=== PATIENT | male | born 1955 | race Caucasian/White ===

== ENCOUNTER 2019-11-30 16:50 | Emergency (ER) | payer OTHER ==
[2019-11-30] MEDS ORDERED: OXYC1TAB23 PO (17:01)
[2019-11-30] MEDS ORDERED: LISI-542 PO (17:01)
[2019-11-30 17:50] LABS: BASO % 0.4 % (0.0-1.0); EOS # 0.1 10^3/uL (0.0-0.5); EOS % 1.9 % (0.0-3.0); HEMATOCRIT 41.1 % (42.0-52.0); HEMOGLOBIN 14.8 g/dl (13.5-17.5); LYMPH # 1.4 10^3/uL (1.5-5.0); LYMPH % 19.8 % (24.0-44.0); MEAN CORPUSCULAR HEMOGLOBIN 33.6 pg (27.0-33.0); MEAN CORPUSCULAR VOLUME 93.2 fl (80.0-96.0); MONO # 0.8 10^3/uL (0.0-0.8); MONO % 11.2 % (0.0-5.0); NEUTROPHILS # 4.8 10^3/uL (1.5-8.5); NEUTROPHILS % 66.4 % (36.0-66.0); PLATELET COUNT, AUTOMATED 177 10^3/uL (150-450); RED BLOOD COUNT 4.41 10^6/uL (4.30-6.10); WHITE BLOOD COUNT 7.3 10^3/uL (4.0-10.0)
[2019-11-30 18:10] LABS: ERYTHROCYTE SEDIMENTATION RATE 19 mm/hr (0-20)
[2019-11-30 18:13] LABS: ALBUMIN 3.7 GM/DL (3.2-5.2); ALT/SGPT 29 U/L (12-78); BILIRUBIN,DIRECT 0.2 MG/DL (0.0-0.2); BILIRUBIN,TOTAL 0.4 MG/DL (0.2-1.0); BLOOD UREA NITROGEN 4 MG/DL (7-18); C REACTIVE PROTEIN QUANTITATIV 2.15 MG/DL (0.00-0.30); CALCIUM LEVEL 8.5 MG/DL (8.8-10.2); CARBON DIOXIDE LEVEL 23 MEQ/L (21-32); CHLORIDE LEVEL 100 MEQ/L (98-107); CREATININE FOR GFR 0.63 MG/DL (0.70-1.30); GLOMERULAR FILTRATION RATE > 60.0 (>49); GLUCOSE, FASTING 90 MG/DL (70-100); POTASSIUM SERUM 3.7 MEQ/L (3.5-5.1); SODIUM LEVEL 132 MEQ/L (136-145)
--- NOTE | 2019-11-30 18:21 | REPVR ---
PROCEDURE INFORMATION: Exam: US Duplex Left Lower Extremity Veins, Limited Exam date and time: 11/30/2019 6:09 PM Age: 63 years old Clinical indication: Pain; Leg, lower; Left; Additional info: Left lower leg swelling/redness; R/O dvt TECHNIQUE: Imaging protocol: Real-time Duplex ultrasound of the Left Lower Extremity with 2-D wolf scale, color Doppler flow and spectral waveform analysis with image documentation. Limited exam focused on the left lower extremity veins. COMPARISON: No relevant prior studies available. FINDINGS: Left deep veins: Occlusive thrombus in the deep venous system extending from the femoral vein to the tibioperoneal trunk. Left superficial veins: Unremarkable. Saphenofemoral junction is patent without thrombus. Soft tissues: Lower leg edema. IMPRESSION: 1. Occlusive thrombus in the deep venous system extending from the femoral vein to the tibioperoneal trunk. 2. Lower leg edema. Electronically signed by: Napoleon Neri On 11/30/2019 18:20:56 PM
[2019-11-30 18:47] LABS: NT-PRO BNP 188 PG/ML (<125)
[2019-11-30 18:54] LABS: INR 1.04; PARTIAL THROMBOPLASTIN TIME 25.8 SECONDS (25.0-38.4); PROTHROMBIN TIME 13.3 SECONDS (11.8-14.0)
[2019-11-30 19:32] VITALS: BP 151/76
[2019-11-30] MEDS ORDERED: APIXABAN 5 MG TAB (ELIQUIS) PO ONE (19:45)
[2019-11-30] MEDS ORDERED: ELIQ5TAB PO (19:52)
[2019-12-03 11:19] LABS: DRVV SCREEN 28.1 SEC
[2019-12-03 11:20] LABS: PTT LUPUS TYPE ANTICOAG SCREEN 0.7 (0-1.2)
[2019-12-08 18:14] LABS: ANTI THROMBIN 3 ANTIGEN IMMUNO 73 % (72-124); ANTI THROMBIN 3 FUNCT ACTIVITY 82 % (75-135); CARDIOLIPIN IGA ANTIBODY <9 APL U/mL (0-11); CARDIOLIPIN IGG ANTIBODY <9 GPL U/mL (0-14); CARDIOLIPIN IGM ANTIBODY <9 MPL U/mL (0-12); PHOSPHOLIPIDS LEVEL 154 mg/dL (150-250); PROTEIN C FUNCTIONAL ACTIVITY 88 % (73-180); PROTEIN S FUNCTIONAL ACTIVITY 80 % (63-140)
== END 2019-11-30 20:31 | disposition home or self-care (01) ==
LOC: M ED 16:50
DX: I82.412 Acute embolism and thrombosis of left femoral vein (principal); I10 Essential (primary) hypertension; M54.9 Dorsalgia, unspecified; F17.210 Nicotine dependence, cigarettes, uncomplicated; Z79.899 Other long term (current) drug therapy; Z79.01 Long term (current) use of anticoagulants

== ENCOUNTER → 2020-01-15 | Outpatient (CLI) | payer OTHER ==
[~2020-01-15] MED LIST: ELIQ5TAB PO; LISI-542 PO; OXYC1TAB23 PO
--- NOTE | 2020-02-03 17:37 | REP ---
BILATERAL LOWER EXTREMITY ARTERIAL DOPPLER ULTRASOUND HISTORY: Atherosclerosis. FINDINGS: Ankle brachial indices could not be accomplished due to patient intolerance and pain. Essentially normal biphasic waveforms are seen throughout the lower extremities. Mild plaquing is seen. The right popliteal vein is incidentally noted to be thrombosed. This is a known DVT. No arterial stenosis or occlusion is appreciated. 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
== END ==
LOC: M RAD 13:58
PROVIDERS: ATTEND Physician Assistant
DX: I70.203 Unspecified atherosclerosis of native arteries of extremities, bilateral legs (principal); I82.431 Acute embolism and thrombosis of right popliteal vein

== ENCOUNTER → 2022-01-31 | Outpatient (REF) | payer MEDICARE, OTHER ==
[~2022-01-31] MED LIST changes: -LISI-542 PO; +LISI5TAB11 PO
[2022-01-31 18:11] LABS: HEMOGLOBIN 14.9 g/dl (13.5-17.5); MEAN CORPUSCULAR HEMOGLOBIN 32.3 pg (27.0-33.0); MEAN CORPUSCULAR HGB CONC 33.9 g/dl (32.0-36.5); MEAN CORPUSCULAR VOLUME 95.4 fl (80.0-96.0); PLATELET COUNT, AUTOMATED 224 10^3/uL (150-450); RED BLOOD COUNT 4.61 10^6/uL (4.30-6.10); WHITE BLOOD COUNT 8.1 10^3/uL (4.0-10.0)
[2022-01-31 18:58] LABS: ALBUMIN 3.9 GM/DL (3.2-5.2); ALT/SGPT 32 U/L (12-78); BILIRUBIN,TOTAL 0.4 MG/DL (0.2-1.0); BLOOD UREA NITROGEN 8 MG/DL (7-18); CALCIUM LEVEL 9.2 MG/DL (8.8-10.2); CARBON DIOXIDE LEVEL 27 MEQ/L (21-32); CHLORIDE LEVEL 104 MEQ/L (98-107); CHOLESTEROL LEVEL 107 MG/DL (<200); CHOLESTEROL RISK RATIO 1.981 (<5); CREATININE FOR GFR 0.73 MG/DL (0.70-1.30); GLOMERULAR FILTRATION RATE > 60.0 (>49); GLUCOSE, FASTING 86 MG/DL (70-100); HDL CHOLESTEROL 54 MG/DL (>40); LDL CHOLESTEROL 40 MG/DL (<100); NON-HDL-C 53 MG/DL; POTASSIUM SERUM 4.5 MEQ/L (3.5-5.1); PROSTATIC SPECIFIC AG MONITOR 0.92 NG/ML (< 4.00); SODIUM LEVEL 135 MEQ/L (136-145); TOTAL PROTEIN 7.4 GM/DL (6.4-8.2); TRIGLYCERIDES LEVEL 64 MG/DL (<150)
[2022-01-31 19:35] LABS: HEMOGLOBIN A1c 5.2 %
== END ==
LOC: M LABDRAWC 17:28
PROVIDERS: ATTEND Family Medicine
DX: E78.5 Hyperlipidemia, unspecified (principal)
CPT/HCPCS: 36415; 80053; 80061; 82306; 83036; 84153; 85027; G0480

== ENCOUNTER 2022-07-29 20:43 | Emergency (ER) | payer MEDICARE, OTHER ==
[~2022-07-29] VITALS: Ht 177.8 cm; Wt 72.7 kg
[2022-07-29 21:24] LABS: BASO % 0.5 % (0.0-1.0); HEMATOCRIT 41.8 % (42.0-52.0); HEMOGLOBIN 14.6 g/dl (13.5-17.5); LYMPH # 1.2 10^3/uL (1.5-5.0); LYMPH % 29.5 % (24.0-44.0); MEAN CORPUSCULAR HEMOGLOBIN 31.9 pg (27.0-33.0); MEAN CORPUSCULAR HGB CONC 34.9 g/dl (32.0-36.5); MEAN CORPUSCULAR VOLUME 91.5 fl (80.0-96.0); MONO # 0.5 10^3/uL (0.0-0.8); MONO % 11.1 % (2.0-8.0); NEUTROPHILS # 2.4 10^3/uL (1.5-8.5); NEUTROPHILS % 57.7 % (36.0-66.0); PLATELET COUNT, AUTOMATED 148 10^3/uL (150-450); RED BLOOD COUNT 4.57 10^6/uL (4.30-6.10); WHITE BLOOD COUNT 4.1 10^3/uL (4.0-10.0)
[2022-07-29 21:48] LABS: LIPASE 35 U/L (12-53)
[2022-07-29 21:50] LABS: CPK CREATINE PHOSPHOKINASE 181 U/L (46-171)
[2022-07-29 21:54] LABS: ALBUMIN 3.6 G/DL (3.2-5.2); ALKALINE PHOSPHATASE 102 U/L (46-116); ALT/SGPT 69 U/L (7.0-40); AST/SGOT 80 U/L (<34); BILIRUBIN,DIRECT 0.3 MG/DL (<0.4); BILIRUBIN,TOTAL 0.7 MG/DL (0.3-1.2); BLOOD UREA NITROGEN 10 MG/DL (9-23); CALCIUM LEVEL 8.9 MG/DL (8.3-10.6); CARBON DIOXIDE LEVEL 22 MMOL/L (20-31); CHLORIDE LEVEL 102 MMOL/L (98-107); CK-MB VALUE MASS 5.4 NG/ML (<3.6); CREATININE FOR GFR 0.62 MG/DL (0.70-1.30); GLOMERULAR FILTRATION RATE > 60.0 (>49); GLUCOSE, FASTING 96 MG/DL (74-106); MB/CK RELATIVE INDEX 2.98 (< OR =4); POTASSIUM SERUM 3.8 MMOL/L (3.5-5.1); SODIUM LEVEL 135 MMOL/L (136-145); TOTAL PROTEIN 6.9 G/DL (5.7-8.2)
[2022-07-29] MEDS ORDERED: ISOVUE-370 76% 100ML VIAL As Ordered ONE (22:12)
[2022-07-29 22:49] LABS: MB/CK RELATIVE INDEX 2.5 (< OR =4)
[2022-07-30] MEDS ORDERED: NS 1,000 ML IV ONE (01:00)
[2022-07-30] MEDS: MORPHINE 4 MG/ML 1ML VIAL IV PRN ×3 (01:04→04:41)
[2022-07-30] MEDS ORDERED: OXYCODONE/APAP 5MG/325MG(HOME DOSE PACK) PO ONE (05:25)
[2022-07-30] MEDS ORDERED: MORPHINE 4 MG/ML 1ML VIAL IV ONE (05:25)
[2022-07-30] MEDS ORDERED: OXYC1TAB23 PO ×2 (05:26→09:14)
[2022-07-30 05:31] VITALS: BP 148/78
== END 2022-07-30 05:39 | disposition home or self-care (01) ==
LOC: EDBD 20:43 → M ED 20:43
DX: R10.9 Unspecified abdominal pain (principal); I73.9 Peripheral vascular disease, unspecified; E27.9 Disorder of adrenal gland, unspecified; I10 Essential (primary) hypertension; Z86.718 Personal history of other venous thrombosis and embolism; E78.5 Hyperlipidemia, unspecified; I25.10 Atherosclerotic heart disease of native coronary artery without angina pectoris; I70.213 Atherosclerosis of native arteries of extremities with intermittent claudication, bilateral legs; Z79.01 Long term (current) use of anticoagulants
CPT/HCPCS: 51701; 75635; 80048; 80076; 81001; 82550; 82553; 83690; 83880; 84484; 85025; 93005; 93041; 96374; 96376; 99285; J2270; Q9967

== ENCOUNTER → 2022-07-31 | Outpatient (REF) | payer MEDICARE, OTHER | LOC: M SFHCCLAY 11:26 | PROVIDERS: ATTEND Nurse Practitioner Family | DX: R19.7 Diarrhea, unspecified (principal) ==

== ENCOUNTER → 2022-09-20 | Outpatient (REF) | payer MEDICARE, OTHER | LOC: M SFHCCLAY 11:23 | PROVIDERS: ATTEND Nurse Practitioner Family | DX: R19.7 Diarrhea, unspecified (principal) ==

== ENCOUNTER → 2022-10-13 | Outpatient (REF) | payer MEDICARE | LOC: M LABDRAWC 17:41 | PROVIDERS: ATTEND Urology | DX: Z12.5 Encounter for screening for malignant neoplasm of prostate (principal) ==

== ENCOUNTER → 2022-10-13 | Outpatient (REF) | payer MEDICARE ==
[2022-10-13 18:17] LABS: HEMATOCRIT 41.1 % (42.0-52.0); HEMOGLOBIN 14.1 g/dl (13.5-17.5); MEAN CORPUSCULAR HEMOGLOBIN 32.8 pg (27.0-33.0); MEAN CORPUSCULAR HGB CONC 34.3 g/dl (32.0-36.5); MEAN CORPUSCULAR VOLUME 95.6 fl (80.0-96.0); PLATELET COUNT, AUTOMATED 192 10^3/uL (150-450); WHITE BLOOD COUNT 6.8 10^3/uL (4.0-10.0)
[2022-10-13 18:35] LABS: ALBUMIN 3.4 G/DL (3.2-5.2); ALKALINE PHOSPHATASE 76 U/L (46-116); ALT/SGPT 40 U/L (7.0-40); AST/SGOT 25 U/L (<34); BILIRUBIN,DIRECT 0.1 MG/DL (<0.4); BILIRUBIN,TOTAL 0.3 MG/DL (0.3-1.2); IRON (FE) 88 UG/DL (65-175); PERCENT SATURATION 30.4 % (19.7-50.0); TOTAL IRON BINDING CAPACITY 289 UG/DL (250-425); TOTAL PROTEIN 6.2 G/DL (5.7-8.2)
[2022-10-13 18:49] LABS: HEPATITIS B SURFACE ANTIGEN NEGATIVE (NEGATIVE)
[2022-10-13 19:11] LABS: HEPATITIS B CORE ANTIBODY IGM NEGATIVE (NEGATIVE)
[2022-10-18 16:08] LABS: ANCA-ATYPICAL <1:20 titer (Neg:<1:20); ANTI-MITOCHONDRIAL ANTIBODY <20.0 Units (0.0-20.0); ANTINUCLEAR ANTIBODIES DIRECT Negative (Negative); CYTOPLASMIC NEUTROP AB ANCA-C <1:20 titer (Neg:<1:20); LIVER-KIDNEY MICROSOMAL ABY <20.1 Units (0.0-20.0); PERINUCLEAR AB ANCA-P <1:20 titer (Neg:<1:20)
== END ==
LOC: M LABDRAWC 17:11
PROVIDERS: ATTEND Physician Assistant Medical
DX: R74.01 Elevation of levels of liver transaminase levels (principal); Z12.5 Encounter for screening for malignant neoplasm of prostate; Z79.899 Other long term (current) drug therapy

== ENCOUNTER 2022-11-03 11:28 | Day surgery (SDC) | payer MEDICARE ==
[~2022-11-03] VITALS: Ht 177.8 cm; Wt 83.6 kg
[~2022-11-03 11:28] MED LIST changes: +FLOM0.4C39 PO; +GABA-1171 PO
[2022-11-03] MEDS ORDERED: propofoL 200 MG/20 ML VIAL As Ordered ONE ×2 (11:39→14:14)
[2022-11-03] MEDS ORDERED: LIDOCAINE 2% 100MG/5ML SDV (FOR ANES.) As Ordered ONE (11:39)
[2022-11-03] MEDS ORDERED: fentaNYL 100 MCG/2 ML INJECTION As Ordered ONE (11:40)
[2022-11-03 12:08] VITALS: TEMP 97
[2022-11-03] MEDS ORDERED: ePHEDrine SULFATE 25 MG/5 ML(5MG/ML) SYRINGE As Ordered ONE ×2 (12:26→14:01)
[2022-11-03] MEDS ORDERED: GLYCOPYRROLATE INJ 0.2 MG/ML 2 ML VIAL As Ordered ONE (14:11)
[2022-11-03 15:10] VITALS: BP 133/64; O2SAT 96
[2022-11-04] MEDS ORDERED: OXYC7.5T3 PO (09:53)
[2022-11-04] MEDS ORDERED: FINA5TAB2 PO (10:06)
[2022-11-04] MEDS ORDERED: ERGO500029 PO (10:06)
[2022-11-04] MEDS ORDERED: METO1TAB7 PO (10:06)
[2022-11-04] MEDS ORDERED: ROSU40TA4 PO (10:06)
[2022-11-04] MEDS ORDERED: ELIQ5TAB PO (10:06)
[2022-11-04] MEDS ORDERED: FLOM0.4C39 PO (10:06)
[2022-11-04] MEDS ORDERED: LISI30TA4 PO (10:06)
== END 2022-11-03 15:15 | disposition home or self-care (01) ==
LOC: M OPP 11:28
PROVIDERS: ATTEND Internal Medicine Gastroenterology
DX: D12.0 Benign neoplasm of cecum (principal); D12.2 Benign neoplasm of ascending colon; D12.5 Benign neoplasm of sigmoid colon; K64.8 Other hemorrhoids; B96.81 Helicobacter pylori [H. pylori] as the cause of diseases classified elsewhere; K29.80 Duodenitis without bleeding; K29.70 Gastritis, unspecified, without bleeding; Z79.01 Long term (current) use of anticoagulants; Z79.811 Long term (current) use of aromatase inhibitors; Z79.891 Long term (current) use of opiate analgesic; Z79.899 Other long term (current) drug therapy

== ENCOUNTER 2022-11-04 05:50 | Inpatient (IN) | payer MEDICARE ==
[~2022-11-04] VITALS: Ht 177.8 cm; Wt 85.3 kg
[2022-11-04] MEDS ORDERED: NS 1,000 ML IV SCH (06:25)
[2022-11-04 06:50] LABS: BASO % 0.3 % (0.0-1.0); EOS % 0.2 % (0.0-3.0); HEMATOCRIT 40.8 % (42.0-52.0); HEMOGLOBIN 13.9 g/dl (13.5-17.5); LYMPH # 1.1 10^3/uL (1.5-5.0); LYMPH % 8.8 % (24.0-44.0); MEAN CORPUSCULAR HEMOGLOBIN 32.8 pg (27.0-33.0); MEAN CORPUSCULAR HGB CONC 34.1 g/dl (32.0-36.5); MEAN CORPUSCULAR VOLUME 96.2 fl (80.0-96.0); MONO # 0.9 10^3/uL (0.0-0.8); MONO % 7.2 % (2.0-8.0); NEUTROPHILS % 83.2 % (36.0-66.0); PLATELET COUNT, AUTOMATED 186 10^3/uL (150-450); RED BLOOD COUNT 4.24 10^6/uL (4.30-6.10)
[2022-11-04 07:08] LABS: BLOOD UREA NITROGEN 6 MG/DL (9-23); CALCIUM LEVEL 9.2 MG/DL (8.3-10.6); CARBON DIOXIDE LEVEL 23 MMOL/L (20-31); CHLORIDE LEVEL 105 MMOL/L (98-107); CREATININE FOR GFR 0.59 MG/DL (0.70-1.30); GLOMERULAR FILTRATION RATE > 60.0 (>49); GLUCOSE, FASTING 116 MG/DL (74-106); SODIUM LEVEL 136 MMOL/L (136-145)
[2022-11-04] MEDS ORDERED: ONDANSETRON 4MG 2ML VIAL IV ONE (07:20)
[2022-11-04] MEDS: MORPHINE 2 MG/ML 1ML VIAL IV PRN ×2 (07:26→08:14)
[2022-11-04] MEDS ORDERED: methylPREDNISolone 125MG 2ML VIAL IV ONE (07:50)
[2022-11-04] MEDS ORDERED: IPRATROPIUM 0.5MG/ALBUTEROL 2.5MG INH SOL UD 3ML (DUONEB) NEB ONE (07:50)
[2022-11-04] MEDS ORDERED: ALBUTEROL SULFATE 2.5MG/0.5ML INH NEB SOLN INH ONE (07:50)
[2022-11-04] MEDS: GASTROGRAFIN SOLUTION 30ML PO SCH ×2 (07:56→08:14)
[2022-11-04] MEDS ORDERED: ISOVUE-370 76% 100ML VIAL As Ordered ONE (08:47)
[2022-11-04] MEDS ORDERED: PIPERACILLIN/TAZOBACTAM SOD 4.5 GM in D5W MINI-BAG PLUS 50 ML IV ONE (09:10)
[2022-11-04 09:27] LABS: LIPASE 27 U/L (12-53)
[2022-11-04 09:29] LABS: ALBUMIN 3.6 G/DL (3.2-5.2); ALKALINE PHOSPHATASE 86 U/L (46-116); ALT/SGPT 24 U/L (7.0-40); AST/SGOT 14 U/L (<34); BILIRUBIN,DIRECT 0.3 MG/DL (<0.4); BILIRUBIN,TOTAL 0.7 MG/DL (0.3-1.2); TOTAL PROTEIN 6.4 G/DL (5.7-8.2)
[2022-11-04] MEDS ORDERED: OXYC7.5T3 PO (09:53)
[2022-11-04] MEDS ORDERED: ELIQ5TAB PO (10:06)
[2022-11-04] MEDS ORDERED: METO1TAB7 PO (10:06)
[2022-11-04] MEDS ORDERED: FINA5TAB2 PO (10:06)
[2022-11-04] MEDS ORDERED: ROSU40TA4 PO (10:06)
[2022-11-04] MEDS ORDERED: FLOM0.4C39 PO (10:06)
[2022-11-04] MEDS ORDERED: ERGO500029 PO (10:06)
[2022-11-04] MEDS ORDERED: LISI30TA4 PO (10:06)
[2022-11-04] MEDS ORDERED: HOME MED LIST COMPLETE! XX SCH (10:10)
[2022-11-04] MEDS ORDERED: ONDANSETRON 4MG 2ML VIAL IV PRN (10:45)
[2022-11-04] MEDS ORDERED: METOPROLOL TART 25 MG TABLET PO ONE (11:00)
[2022-11-04 13:00] VITALS: BP 126/77; TEMP 97.7; O2SAT 92
[2022-11-04] MEDS ORDERED: MORPHINE 2 MG/ML 1ML VIAL IV PRN (13:25)
[2022-11-04] MEDS ORDERED: ALBUTEROL SULFATE 2.5MG/0.5ML INH NEB SOLN NEB PRN (13:25)
[2022-11-04] MEDS: LR 1,000 ML IV SCH ×2 (13:37→23:20)
[2022-11-04] MEDS: PANTOPRAZOLE 40MG VIAL IV SCH (15:35)
[2022-11-04] MEDS ORDERED: KETOROLAC 30 MG/ML 1ML VIAL IV ONE (15:55)
[2022-11-04] MEDS: PIPERACILLIN/TAZOBACTAM SOD 3.375 GM in D5W MINI-BAG PLUS 50 ML IV SCH ×2 (16:53→23:19)
[2022-11-04] MEDS: MORPHINE 4 MG/ML 1ML VIAL IV PRN ×2 (18:05→22:55)
[2022-11-04] MEDS: METOPROLOL TART 25 MG TABLET PO SCH (21:34)
[2022-11-04] MEDS ORDERED: KETOROLAC 30 MG/ML 1ML VIAL IV PRN (22:00)
[2022-11-05] MEDS: MORPHINE 4 MG/ML 1ML VIAL IV PRN ×5 (03:50→20:33)
[2022-11-05] MEDS: PIPERACILLIN/TAZOBACTAM SOD 3.375 GM in D5W MINI-BAG PLUS 50 ML IV SCH ×4 (05:10→23:11)
[2022-11-05 06:00] VITALS: BP 114/60; TEMP 97.5; O2SAT 94
[2022-11-05 06:19] LABS: BASO % 0.2 % (0.0-1.0); HEMATOCRIT 34.2 % (42.0-52.0); HEMOGLOBIN 11.8 g/dl (13.5-17.5); LYMPH # 0.9 10^3/uL (1.5-5.0); LYMPH % 8.1 % (24.0-44.0); MEAN CORPUSCULAR HEMOGLOBIN 33.4 pg (27.0-33.0); MEAN CORPUSCULAR HGB CONC 34.5 g/dl (32.0-36.5); MEAN CORPUSCULAR VOLUME 96.9 fl (80.0-96.0); MONO # 0.8 10^3/uL (0.0-0.8); MONO % 7.7 % (2.0-8.0); NEUTROPHILS % 83.5 % (36.0-66.0); PLATELET COUNT, AUTOMATED 162 10^3/uL (150-450); RED BLOOD COUNT 3.53 10^6/uL (4.30-6.10); WHITE BLOOD COUNT 10.8 10^3/uL (4.0-10.0)
[2022-11-05 06:35] LABS: ALKALINE PHOSPHATASE 64 U/L (46-116); ALT/SGPT 19 U/L (7.0-40); AST/SGOT < 8 U/L (<34); BILIRUBIN,TOTAL 0.5 MG/DL (0.3-1.2); BLOOD UREA NITROGEN 8 MG/DL (9-23); CALCIUM LEVEL 8.8 MG/DL (8.3-10.6); CARBON DIOXIDE LEVEL 26 MMOL/L (20-31); CHLORIDE LEVEL 106 MMOL/L (98-107); GLOMERULAR FILTRATION RATE > 60.0 (>49); GLUCOSE, FASTING 117 MG/DL (74-106); SODIUM LEVEL 139 MMOL/L (136-145); TOTAL PROTEIN 5.6 G/DL (5.7-8.2)
[2022-11-05] MEDS: LR 1,000 ML IV SCH ×3 (06:45→20:34)
[2022-11-05] MEDS: METOPROLOL TART 25 MG TABLET PO SCH ×2 (08:07→20:34)
[2022-11-05 14:00] VITALS: BP 124/67; TEMP 97.7; O2SAT 94
[2022-11-05] MEDS: PANTOPRAZOLE 40MG VIAL IV SCH (14:30)
[2022-11-05 20:00] VITALS: BP 135/64; TEMP 97.9; O2SAT 95
[2022-11-06] MEDS: MORPHINE 4 MG/ML 1ML VIAL IV PRN ×2 (00:34→05:16)
[2022-11-06 04:55] VITALS: BP 152/87; TEMP 97.7; O2SAT 94
[2022-11-06] MEDS: PIPERACILLIN/TAZOBACTAM SOD 3.375 GM in D5W MINI-BAG PLUS 50 ML IV SCH ×4 (05:15→23:26)
[2022-11-06 06:14] LABS: BASO % 0.4 % (0.0-1.0); EOS # 0.1 10^3/uL (0.0-0.5); EOS % 1.3 % (0.0-3.0); HEMATOCRIT 36.6 % (42.0-52.0); HEMOGLOBIN 12.2 g/dl (13.5-17.5); LYMPH # 1.7 10^3/uL (1.5-5.0); LYMPH % 24.1 % (24.0-44.0); MEAN CORPUSCULAR HEMOGLOBIN 32.4 pg (27.0-33.0); MEAN CORPUSCULAR HGB CONC 33.3 g/dl (32.0-36.5); MEAN CORPUSCULAR VOLUME 97.3 fl (80.0-96.0); MONO # 0.6 10^3/uL (0.0-0.8); MONO % 8.1 % (2.0-8.0); NEUTROPHILS # 4.7 10^3/uL (1.5-8.5); NEUTROPHILS % 65.8 % (36.0-66.0); PLATELET COUNT, AUTOMATED 167 10^3/uL (150-450); RED BLOOD COUNT 3.76 10^6/uL (4.30-6.10); WHITE BLOOD COUNT 7.1 10^3/uL (4.0-10.0)
[2022-11-06 06:37] LABS: BLOOD UREA NITROGEN 10 MG/DL (9-23); CALCIUM LEVEL 8.5 MG/DL (8.3-10.6); CARBON DIOXIDE LEVEL 26 MMOL/L (20-31); CHLORIDE LEVEL 105 MMOL/L (98-107); GLOMERULAR FILTRATION RATE > 60.0 (>49); GLUCOSE, FASTING 77 MG/DL (74-106); POTASSIUM SERUM 3.8 MMOL/L (3.5-5.1); SODIUM LEVEL 141 MMOL/L (136-145)
[2022-11-06] MEDS: METOPROLOL TART 25 MG TABLET PO SCH ×2 (08:32→20:45)
[2022-11-06] MEDS ORDERED: MORPHINE 2 MG/ML 1ML VIAL IV PRN (08:45)
[2022-11-06] MEDS ORDERED: BISACODYL 10MG SUPP PR ONE (08:45)
[2022-11-06] MEDS: LR 1,000 ML IV SCH (12:45)
[2022-11-06] MEDS: KETOROLAC 30 MG/ML 1ML VIAL IV SCH ×3 (12:47→23:26)
[2022-11-06 14:00] VITALS: BP 139/66; TEMP 97.9; O2SAT 95
[2022-11-06] MEDS: PANTOPRAZOLE 40MG VIAL IV SCH (14:55)
[2022-11-06 20:47] VITALS: BP 132/71; TEMP 97.5; O2SAT 97
[2022-11-07] MEDS: KETOROLAC 30 MG/ML 1ML VIAL IV SCH ×2 (06:00→11:22)
[2022-11-07 06:02] LABS: BASO % 0.5 % (0.0-1.0); EOS # 0.1 10^3/uL (0.0-0.5); EOS % 2.5 % (0.0-3.0); HEMATOCRIT 34.5 % (42.0-52.0); HEMOGLOBIN 11.7 g/dl (13.5-17.5); LYMPH # 1.2 10^3/uL (1.5-5.0); LYMPH % 26.8 % (24.0-44.0); MEAN CORPUSCULAR HEMOGLOBIN 32.7 pg (27.0-33.0); MEAN CORPUSCULAR HGB CONC 33.9 g/dl (32.0-36.5); MEAN CORPUSCULAR VOLUME 96.4 fl (80.0-96.0); MONO # 0.5 10^3/uL (0.0-0.8); MONO % 12.5 % (2.0-8.0); NEUTROPHILS # 2.5 10^3/uL (1.5-8.5); NEUTROPHILS % 57.5 % (36.0-66.0); PLATELET COUNT, AUTOMATED 165 10^3/uL (150-450); RED BLOOD COUNT 3.58 10^6/uL (4.30-6.10); WHITE BLOOD COUNT 4.3 10^3/uL (4.0-10.0)
[2022-11-07 06:08] VITALS: BP 130/75; TEMP 97.7; O2SAT 95
[2022-11-07] MEDS: PIPERACILLIN/TAZOBACTAM SOD 3.375 GM in D5W MINI-BAG PLUS 50 ML IV SCH ×2 (06:10→11:22)
[2022-11-07 06:24] LABS: BLOOD UREA NITROGEN 9 MG/DL (9-23); CALCIUM LEVEL 7.8 MG/DL (8.3-10.6); CARBON DIOXIDE LEVEL 26 MMOL/L (20-31); CHLORIDE LEVEL 102 MMOL/L (98-107); CREATININE FOR GFR 0.75 MG/DL (0.70-1.30); GLOMERULAR FILTRATION RATE > 60.0 (>49); GLUCOSE, FASTING 87 MG/DL (74-106); POTASSIUM SERUM 3.4 MMOL/L (3.5-5.1); SODIUM LEVEL 138 MMOL/L (136-145)
[2022-11-07] MEDS ORDERED: POTASSIUM CHLORIDE 10MEQ SR TABLET PO ONE (09:00)
[2022-11-07] MEDS ORDERED: BISACODYL 10MG SUPP PR ONE (09:05)
[2022-11-07 09:14] VITALS: BP 143/90
[2022-11-07] MEDS: METOPROLOL TART 25 MG TABLET PO SCH (09:14)
[2022-11-07] MEDS ORDERED: SENO8.6T10 PO (13:06)
[2022-11-07] MEDS ORDERED: BACL10TA2 PO (13:06)
[2022-11-07] MEDS ORDERED: DULC10SU2 PR (13:06)
[2022-11-07] MEDS ORDERED: CEFD300C41 PO (13:08)
[2022-11-07] MEDS: PANTOPRAZOLE 40MG VIAL IV SCH (14:00)
== END 2022-11-07 14:22 | disposition home or self-care (01) | DRG 389 ==
LOC: M ED 05:50 → EDBD 05:50 → M ED INP 10:43 → ENRESERV 11:27 → M MSPAV 13:16
PROVIDERS: ADMIT Internal Medicine Nephrology; ATTEND Internal Medicine Nephrology
PROC: 0DB98ZX Excision of Duodenum, Via Natural or Artificial Opening Endoscopic, Diagnostic (ICD-10-PCS; 2022-10-30)
PROC: 0DB68ZX Excision of Stomach, Via Natural or Artificial Opening Endoscopic, Diagnostic (ICD-10-PCS; principal; 2022-11-03)
PROC: 0DBN8ZX Excision of Sigmoid Colon, Via Natural or Artificial Opening Endoscopic, Diagnostic (ICD-10-PCS; 2022-11-03)
PROC: 0DBK8ZX Excision of Ascending Colon, Via Natural or Artificial Opening Endoscopic, Diagnostic (ICD-10-PCS; 2022-11-03)
PROC: 0DBH8ZX Excision of Cecum, Via Natural or Artificial Opening Endoscopic, Diagnostic (ICD-10-PCS; 2022-11-03)
DX: K56.7 Ileus, unspecified (principal); G95.9 Disease of spinal cord, unspecified; J44.9 Chronic obstructive pulmonary disease, unspecified; I73.9 Peripheral vascular disease, unspecified; E78.5 Hyperlipidemia, unspecified; N40.1 Benign prostatic hyperplasia with lower urinary tract symptoms; K76.0 Fatty (change of) liver, not elsewhere classified; F10.10 Alcohol abuse, uncomplicated; E55.9 Vitamin D deficiency, unspecified; I10 Essential (primary) hypertension; R39.9 Unspecified symptoms and signs involving the genitourinary system; S14.109S Unspecified injury at unspecified level of cervical spinal cord, sequela; M62.838 Other muscle spasm; Z79.01 Long term (current) use of anticoagulants; Z79.891 Long term (current) use of opiate analgesic; Z79.899 Other long term (current) drug therapy; Z99.3 Dependence on wheelchair; Z86.718 Personal history of other venous thrombosis and embolism; F17.200 Nicotine dependence, unspecified, uncomplicated; R11.0 Nausea; K29.80 Duodenitis without bleeding; K29.70 Gastritis, unspecified, without bleeding; R19.7 Diarrhea, unspecified; K64.8 Other hemorrhoids; D12.0 Benign neoplasm of cecum; D12.2 Benign neoplasm of ascending colon; D12.5 Benign neoplasm of sigmoid colon

== ENCOUNTER → 2024-12-11 | Outpatient (CLI) | payer MEDICARE, OTHER ==
[~2024-12-11] MED LIST changes: +BACL10TA2 PO; +CEFD1CAP9 PO; +DULC10SU2 PR; +ERGO500029 PO; +FINA5TAB2 PO; -FLOM0.4C39 PO; +LISI30TA4 PO; +METO1TAB7 PO; +OXYC7.5T3 PO; +ROSU40TA81 PO; +SENO8.6T10 PO; +TAMS-18 PO
== END ==
LOC: M PLARAD 14:56
PROVIDERS: ATTEND Internal Medicine
DX: M54.12 Radiculopathy, cervical region (principal)

== ENCOUNTER → 2025-01-29 | Outpatient (CLI) | payer OTHER, MEDICARE | LOC: M PLARAD 13:11 | PROVIDERS: ATTEND Internal Medicine | DX: M47.26 Other spondylosis with radiculopathy, lumbar region (principal); M51.16 Intervertebral disc disorders with radiculopathy, lumbar region ==